=== PATIENT | male | born 1965 | race Caucasian/White ===

== ENCOUNTER 2016-08-25 08:06 | Observation (INO) | payer OTHER ==
--- NOTE | 2016-08-25 08:44 | EDPHY ---
H & P Time Seen by Provider: 08/25/16 08:15 HPI/ROS: This is a 50-year-old male patient presented to the emergency department reports having a vibrator stuck in his rectum since 2199. States him and his girlfriend were trying something new she placed a vibrator in his rectum and was unable to remove it. Pt thought it would come out on its own but hasn't. C/ o rectal discomfort but not really having any pain. Denies any abd pain or discomfort. No other c/o REVIEW OF SYSTEMS: Constitutional: No fever no fatigue Cardiac: No chest pain Gastrointestinal: No abd pain no n/v Genitourinary: No penile pain, positive for rectal discomfort Musculoskeletal: no back pain Skin: no rash Neurological: no VALLADARES or dizziness Past Medical/Surgical History: PMI: denies Smoking Status: Current every day smoker Physical Exam: CONSTITUTIONAL: patient appeared well nourished, non-ill appearing and normally developed. No acute distress. Vital signs as documented. HEENT: NCAT NECK: FROM without pain RESP: Non-labored resp effort GI: Abd soft NTTP, no mass : No object visually seen at the rectum, positive tenderness on rectal exam no blood NEURO: AAOx3 EXTREMITIES: FROM without pain or difficulty SKIN: No rash or lesions PSYCH: Normal affect, restless no distress Constitutional: Initial Vital Signs Temperature (C) 36.8 C 08/25/16 08:07 Heart Rate 86 08/25/16 08:07 Respiratory Rate 18 08/25/16 08:07 Blood Pressure 135/86 H 08/25/16 08:07 O2 Sat (%) 97 08/25/16 08:07 O2 Delivery Mode Room Air Allergies/Adverse Reactions: No Known Allergies Allergy (Unverified 08/25/16 08:12) Home Medications: Medication Instructions Recorded NK [No Known Home Meds] 08/25/16 Medical Decision Making - Diagnostics Imaging: Single view pelvis at 0855 hours History: Foreign body. findings: 13 cm in length cylindrical battery operated device noted in the distal rectosigmoid colon left side of the pelvis overlying the left sacrum obliquely. No pelvic bone fractures. Impression: Vibrator foreign body in the distal rectosigmoid colon. Dictated By: Edgar Valdes ED Course/Re-evaluation: Discussed plan of care: X-ray pelvis, CBC, CMP, coags 0930: Consult with Dr. Dougherty surgical consult, wanted me to call GI for evaluation 0940: Consult with Dr. Lowe GI, he will be down to evaluate patient 1030: To GI lab 1215: Spoke with Dr. Lowe, was able to remove FB object had extensive bleeding clips and epinephrine used bleeding controlled. Recommend pt admit for 24hour obs. 1225: Consult Dr. Dougherty patient admitted through hospitalist for admit for 24 out Differential Diagnosis: Differential diagnosis considered but not limited to perfect bowel, small bowel obstruction external rectal tears - Data Points Laboratory Results: Laboratory Results 08/25/16 09:13 08/25/16 09:13 08/25/16 08/25/16 08/25/16 09:13 09:13 09:13 WBC 12.38 10^3/uL H 10^3/uL (3.80-9.50) RBC 5.52 10^6/uL 10^6/uL (4.40-6.38) Hgb 17.9 g/dL H g/dL (13.7-17.5) Hct 49.4 % % (40.0-51.0) MCV 89.5 fL fL (81.5-99.8) MCH 32.4 pg pg (27.9-34.1) MCHC 36.2 g/dL g/dL (32.4-36.7) RDW 13.3 % % (11.5-15.2) Plt Count 169 10^3/uL 10^3/uL (150-400) MPV 9.0 fL fL (8.7-11.7) Neut % (Auto) 63.7 % % (39.3-74.2) Lymph % (Auto) 30.4 % % (15.0-45.0) Citrus % (Auto) 4.2 % L % (4.5-13.0) Eos % (Auto) 0.5 % L % (0.6-7.6) Baso % (Auto) 0.6 % % (0.3-1.7) Nucleat RBC Rel Count 0.0 % % (0.0-0.2) Absolute Neuts (auto) 7.89 10^3/uL H 10^3/uL (1.70-6.50) Absolute Lymphs (auto) 3.76 10^3/uL H 10^3/uL (1.00-3.00) Absolute Monos (auto) 0.52 10^3/uL 10^3/uL (0.30-0.80) Absolute Eos (auto) 0.06 10^3/uL 10^3/uL (0.03-0.40) Absolute Basos (auto) 0.07 10^3/uL 10^3/uL (0.02-0.10) Absolute Nucleated RBC 0.00 10^3/uL 10^3/uL (0-0.01) Immature Gran % 0.6 % % (0.0-1.1) Immature Gran # 0.08 10^3/uL 10^3/uL (0.00-0.10) PT 13.6 SEC SEC (12.0-15.0) INR 1.05 (0.83-1.16) APTT 27.4 SEC SEC (23.0-38.0) Sodium 141 mEq/L mEq/L (134-144) Potassium 3.3 mEq/L L mEq/L (3.5-5.2) Chloride 108 mEq/L mEq/L (97-110) Carbon Dioxide 23 mEq/l mEq/l (22-31) Anion Gap 10 mEq/L mEq/L (8-16) BUN 9 mg/dL mg/dL (7-23) Creatinine 0.6 mg/dL L mg/dL (0.7-1.3) Estimated GFR > 60 Glucose 82 mg/dL mg/dL (70-100) Calcium 9.2 mg/dL mg/dL (8.5-10.4) Departure - Departure Disposition: To OP Cath/Surgery Condition: Good
[2016-08-25 09:22] LABS: % IMMATURE GRANULYOCYTES 0.6 % (0.0-1.1); ABSOLUTE IMMATURE GRANULOCYTES 0.08 10^3/uL (0.00-0.10); ADD DIFF? NO; ADD MORPH? NO; ADD SCAN? NO; ATYPICAL LYMPHOCYTE FLAG 10 (0-99); FRAGMENT RBC FLAG 0 (0-99); HEMATOCRIT 49.4 % (40.0-51.0); HEMOGLOBIN 17.9 g/dL (13.7-17.5); LEFT SHIFT FLG 0 (0-99); LIPEMIA HEMOLYSIS FLAG 90 (0-99); MEAN CELL HEMOGLOBIN 32.4 pg (27.9-34.1); MEAN CELL HEMOGLOBIN CONCENTR. 36.2 g/dL (32.4-36.7); MEAN CELL VOLUME 89.5 fL (81.5-99.8); PLATELET CLUMPS FLAG 0 (0-99); PLATELET COUNT 169 10^3/uL (150-400); RED BLOOD CELL COUNT 5.52 10^6/uL (4.40-6.38); RED CELL DISTRIBUTION WIDTH 13.3 % (11.5-15.2)
--- NOTE | 2016-08-25 09:24 | CPEKG ---
Heart Rate: 72 RR Interval: 833 P-R Interval: 176 QRSD Interval: 102 QT Interval: 420 QTC Interval: 460 P [place]: 81 QRS [place]: -14 T Wave [place]: 71 EKG Severity - ABNORMAL ECG - EKG Impression: SINUS RHYTHM EKG Impression: BIATRIAL ABNORMALITIES EKG Impression: CONSIDER RIGHT VENTRICULAR HYPERTROPHY Electronically Signed By: Grayson Wick 28-Aug-2016 08:59:30
[2016-08-25 09:32] LABS: INR 1.05 (0.83-1.16); PROTIME(PATIENT) 13.6 SEC (12.0-15.0)
[2016-08-25 09:33] LABS: APTT 27.4 SEC (23.0-38.0)
[2016-08-25 09:49] LABS: CALCIUM 9.2 mg/dL (8.5-10.4); CARBON DIOXIDE 23 mEq/l (22-31); CHLORIDE 108 mEq/L (97-110); CREATININE 0.6 mg/dL (0.7-1.3); GLOMERULAR FILTRATION RATE > 60; GLUCOSE 82 mg/dL (70-100); SODIUM 141 mEq/L (134-144)
[2016-08-25 10:18] LABS: ANION GAP 10 mEq/L (8-16); POTASSIUM 3.3 mEq/L (3.5-5.2)
[2016-08-25] MEDS ORDERED: fentaNYL 100 MCG/2 ML INJ ONE ×2 (11:09→12:24)
[2016-08-25] MEDS ORDERED: LIDOCAINE 2% 5 ML SDV ONE (11:10)
[2016-08-25] MEDS ORDERED: PROPOFOL/EMULSION 500 MG/50 ML BOTTLE IV ONE ×2 (11:10→11:51)
--- NOTE | 2016-08-25 11:55 | GCON ---
[f rep st] CONSULTATION CONSULT NOTE DATE OF CONSULTATION: 08/25/2016 ASSESSMENT: The patient is a 50-year-old gentleman who is otherwise healthy, who is presenting with a foreign body in his rectum. He has had a vibrator lodged in the rectosigmoid location since last evening. He is having 8/10 rectal and pelvic pain, as well as rectal bleeding. RECOMMENDATIONS: Plan for emergent flexible sigmoidoscopy to remove the foreign body lodged in his rectum. CHIEF COMPLAINT: I was asked to see this patient in consultation by Dr. Nestor Adams for a chief complaint of foreign body in the rectum, abdominal pain/ rectal pain and rectal bleeding. HISTORY OF PRESENT ILLNESS: The patient is a 50-year-old gentleman who presents to the emergency room today after getting a vibrator stuck in his rectum since last evening. He currently has 8/10 rectal and pelvic pain. He is having rectal bleeding as well. He has not eaten since last evening. The pain is constant and severe. Nothing makes the pain better or worse. REVIEW OF SYSTEMS: Constitutional: Negative. HEENT negative. Respiratory: Negative. Cardiovascular: Negative. Gastrointestinal: Rectal pain and abdominal pain, as well as rectal bleeding. Genitourinary: Negative. Reproductive/endocrine: Negative. Musculoskeletal: Negative. Hematologic/ lymphatic: Negative. Immunologic, allergic and rheumatologic: Negative. Skin : Negative. Neurologic: Negative. Mental health. Negative. PAST MEDICAL HISTORY: The patient has no significant past medical history. SURGICAL HISTORY: Negative. FAMILY HISTORY: No family history noted related to the chief complaint. SOCIAL HISTORY: He denies alcohol use. He smokes 1 pack of cigarettes per day. ALLERGIES: He has no known drug allergies. MEDICATIONS: Outpatient medications are none. Inpatient medications are none. PHYSICAL EXAMINATION: Vital signs: Temperature is 36.8, heart rate is 86, respirations 18, blood pressure is 135/86, oxygen saturation is 97% on room air. General: He is awake, alert, oriented, and interactive. He is in no apparent distress. HEENT: Pupils are equal and reactive to light. Oral mucosa is moist. Chest: Breath sounds are clear to auscultation bilaterally, without wheezing, rhonchi, or rales. Cardiovascular: Regular rate and rhythm. No murmurs, rubs, or gallops. Normal S1, S2. Abdomen: Soft, nontender, nondistended. Musculoskeletal: There is full range of motion. Skin: [place], warm and well perfused. No rashes. Neurological: Grossly nonfocal. He has coordinating gait. Lymph nodes: There are no palpable lymph nodes. Psych: He is oriented x3. No mood disorder. Normal affect. LABS: White blood cell count is 12.38, hemoglobin 17.9, hematocrit 49.3, platelets are 169, MCV 89. IMAGING: Pelvic x-ray shows a 13cm foreign body in the rectosigmoid junction. /[id number]/MODL MTDD
[2016-08-25] MEDS ORDERED: EPINEPHrine 1 MG/10 ML SYR IVP ONE (12:02)
[2016-08-25] MEDS ORDERED: KETOROLAC 30 MG/1 ML SDV IVP PRN (12:29)
--- NOTE | 2016-08-25 13:10 | GPN ---
[f rep st] PROCEDURE NOTE PREPROCEDURE DIAGNOSIS: Foreign body in the rectum. POSTPROCEDURE DIAGNOSIS: Foreign body in the rectum and rectal bleeding. MEDICATIONS: Monitored anesthesia care. PROCEDURE: Flexible sigmoidoscopy with foreign body and flexible sigmoidoscopy with bleeding cessat ion. INDICATIONS: The patient is a 50-year-old gentleman with a foreign body lodged in his rectum since last evening. He has 8/10 rectal pain and rectal bleeding. The risks and benefits of the procedure were discussed with the patient and consent obtained. The risks include, but not limited to, bleed ing, perforation, risks of sedation. The patient is ASA class 2. DESCRIPTION OF PROCEDURE: The upper endoscope was inserted into the rectum. There was a significan t amount of red blood and blood clots in the rectum. The end of the vibrator was visualized in the rectosigmoid junction. Next, the snare was opened and used to grab the vibrator, which was then dis lodged from the patient's rectum and removed from the body. The scope was reinserted. There were 3 linear mucosal tears, one of which was actively bleeding and was adjacent to a hemorrhoid. These s ites were treated with a total of 4 hemoclips, and the active bleeding site was injected with 2 mL o f 1:10,000 epinephrine. There was no active bleeding at the end of the case. IMPRESSION: 1. Foreign body removed from the rectum. 2. Active rectal bleeding, status post endoscopic management with clips and epinephrine. RECOMMENDATIONS: I recommend admission to the hospital for observation given the significant amount of rectal bleeding, requiring endoscopic therapy for bleeding cessation. He should be on a clear l iquid diet today; and if no further bleeding is observed by tomorrow, he can be discharged to home. Thank you for allowing me to participate in the care of this patient. Please do not hesitate to haider eric with questions. /[id number]/MODL
--- NOTE | 2016-08-25 16:39 | PDEACUHP ---
History and Physical - History of Present Illness error History Information - Allergies/Home Medication List Allergies/Adverse Reactions: No Known Allergies Allergy (Verified 08/25/16 14:03) Home Medications: NK [No Known Home Meds] 08/25/16 [Last Taken Unknown] - Social History Smoking Status: Current every day smoker Physical Exam Temp Pulse Resp BP Pulse Ox 36.9 C 65 12 119/75 93 08/25/16 15:57 08/25/16 15:57 08/25/16 15:57 08/25/16 15:57 08/25/16 15:57 O2 (L/minute) 1 Lab Data & Imaging Review 08/26/16 05:04 08/25/16 09:13 WBC 12.38 10^3/uL (3.80-9.50) H 08/25/16 09:13 RBC 5.52 10^6/uL (4.40-6.38) 08/25/16 09:13 Hgb 17.9 g/dL (13.7-17.5) H 08/25/16 09:13 Hct 49.4 % (40.0-51.0) 08/25/16 09:13 MCV 89.5 fL (81.5-99.8) 08/25/16 09:13 MCH 32.4 pg (27.9-34.1) 08/25/16 09:13 MCHC 36.2 g/dL (32.4-36.7) 08/25/16 09:13 RDW 13.3 % (11.5-15.2) 08/25/16 09:13 Plt Count 169 10^3/uL (150-400) 08/25/16 09:13 MPV 9.0 fL (8.7-11.7) 08/25/16 09:13 Neut % (Auto) 63.7 % (39.3-74.2) 08/25/16 09:13 Lymph % (Auto) 30.4 % (15.0-45.0) 08/25/16 09:13 Saline % (Auto) 4.2 % (4.5-13.0) L 08/25/16 09:13 Eos % (Auto) 0.5 % (0.6-7.6) L 08/25/16 09:13 Baso % (Auto) 0.6 % (0.3-1.7) 08/25/16 09:13 Nucleat RBC Rel Count 0.0 % (0.0-0.2) 08/25/16 09:13 Absolute Neuts (auto) 7.89 10^3/uL (1.70-6.50) H 08/25/16 09:13 Absolute Lymphs (auto) 3.76 10^3/uL (1.00-3.00) H 08/25/16 09:13 Absolute Monos (auto) 0.52 10^3/uL (0.30-0.80) 08/25/16 09:13 Absolute Eos (auto) 0.06 10^3/uL (0.03-0.40) 08/25/16 09:13 Absolute Basos (auto) 0.07 10^3/uL (0.02-0.10) 08/25/16 09:13 Absolute Nucleated RBC 0.00 10^3/uL (0-0.01) 08/25/16 09:13 Immature Gran % 0.6 % (0.0-1.1) 08/25/16 09:13 Immature Gran # 0.08 10^3/uL (0.00-0.10) 08/25/16 09:13 PT 13.6 SEC (12.0-15.0) 08/25/16 09:13 INR 1.05 (0.83-1.16) 08/25/16 09:13 APTT 27.4 SEC (23.0-38.0) 08/25/16 09:13 Sodium 141 mEq/L (134-144) 08/25/16 09:13 Potassium 3.3 mEq/L (3.5-5.2) L 08/25/16 09:13 Chloride 108 mEq/L (97-110) 08/25/16 09:13 Carbon Dioxide 23 mEq/l (22-31) 08/25/16 09:13 Anion Gap 10 mEq/L (8-16) 08/25/16 09:13 BUN 9 mg/dL (7-23) 08/25/16 09:13 Creatinine 0.6 mg/dL (0.7-1.3) L 08/25/16 09:13 Estimated GFR > 60 08/25/16 09:13 Glucose 82 mg/dL (70-100) 08/25/16 09:13 Calcium 9.2 mg/dL (8.5-10.4) 08/25/16 09:13
--- NOTE | 2016-08-25 16:57 | PDGENHP ---
History and Physical History and Physical: Chief complaint: Rectal pain and bleeding History of present illness: The patient is a 50-year-old male who was admitted today for rectal foreign body. Patient says he was playing around with his girlfriend last night around 10:00 p.m. when she inserted a large vibrator into his anus. It was pushed in too far and it disappeared. The patient tried to remove it himself, but was unsuccessful. He was unable to sleep last night from the pain. Early this morning he came to the ED to have it removed. He was taken to the OR by Gastroenterology and underwent removal of the foreign body under general anesthesia. Following the procedure, the patient was feeling much better. Because he experienced perioperative rectal bleeding, he is being admitted overnight for observation. Currently the patient denies any lightheadedness, dizziness, weakness. He has had a bowel movement containing a moderate amount of blood. Past medical history: latent TB, s/p Tx Past surgical history: Oral surgery. Medications: None. Allergies: No known allergies. Social history: Patient smokes 1 pack of cigarettes daily. He drinks about 4- 7 beers weekly. He smokes marijuana regularly. He denies any other drug use. He lives with a roommate. He has a girlfriend. 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 Family history: No significant family medical history. Review of systems: 10 point review of systems was conducted and is negative except per HPI Physical exam: General: The patient is a thin, middle-aged male who is alert and in no acute distress. HEENT: normocephalic, extraocular movements intact, conjunctivae clear, no lesions on face. Nares and oral mucosa pink and moist. Neck: trachea midline, no visible masses, no external lesions. CV: +S1/S2, RRR, no MRG. Resp: unlabored, CTAB no RRW. Abd: soft and nondistended. Bowel sounds are present. Mild tenderness to palpation in left lower quadrant, right lower quadrant. No rebound tenderness or guarding. Musculoskeletal: Normal muscle tone and bulk. 5/5 strength bilateral upper and lower extremities. Neuro: cranial nerves II XII grossly intact. Intact gross motor and sensory function. Psych: appropriate mood/affect. Skin: no pallor. Rectal: Deferred. Vitals: Reviewed, within normal limits. Labs: Personally reviewed and interpreted. Other Data: Personally interpreted and reviewed. Pelvis x-ray: 13 cm length excellent recall battery operated device noted in the distal rectosigmoid colon left side of the pelvis overlying left sacrum obliquely. No pelvic bone fractures. EKG: Normal sinus rhythm with a rate of 72. Biatrial enlargement and incomplete right bundle branch block. No acute ischemic changes. Impression and plan: 1) Rectal foreign body, s/p removal 2) Rectal bleeding, 2/2 trauma 3) Abdominal/rectal pain 4) Nausea, mild 5) Tobacco dependence disorder 6) Marijuana use 7) H/o latent TB -Monitor overnight in med surg -Recheck CBC in AM. May need to recheck sooner if pt develops concerning symptoms. -If patient does well in AM, has no symptoms, he may go home tomorrow. -VTE ppx - not needed, ambulatory. -Code status - full.
[2016-08-25] MEDS ORDERED: ONDANSETRON DISINTEGRATING 4 MG TAB PO PRN (16:58)
[2016-08-25] MEDS ORDERED: ACETAMINOPHEN 325 MG TAB PO PRN (16:58)
[2016-08-25] MEDS ORDERED: NICOTINE 14 MG/24 HR PATCH TD PRN (17:00)
[2016-08-25] MEDS ORDERED: HYDROCODONE/APAP 10/325 TAB PO PRN (17:02)
[2016-08-25] MEDS ORDERED: NICOTINE 21 MG/24 HR PATCH TD PRN (17:23)
[2016-08-25] MEDS: HYDROCODONE/APAP 5/325 TAB PO PRN ×2 (17:25→21:39)
[2016-08-26 05:54] LABS: % IMMATURE GRANULYOCYTES 0.6 % (0.0-1.1); ABSOLUTE IMMATURE GRANULOCYTES 0.06 10^3/uL (0.00-0.10); ADD DIFF? NO; ADD MORPH? NO; ADD SCAN? NO; ATYPICAL LYMPHOCYTE FLAG 10 (0-99); FRAGMENT RBC FLAG 0 (0-99); HEMATOCRIT 45.4 % (40.0-51.0); LEFT SHIFT FLG 0 (0-99); LIPEMIA HEMOLYSIS FLAG 90 (0-99); MEAN CELL HEMOGLOBIN 32.4 pg (27.9-34.1); MEAN CELL HEMOGLOBIN CONCENTR. 35.2 g/dL (32.4-36.7); MEAN CELL VOLUME 91.9 fL (81.5-99.8); MEAN PLATELET VOLUME 9.5 fL (8.7-11.7); PLATELET CLUMPS FLAG 0 (0-99); PLATELET COUNT 162 10^3/uL (150-400); RED BLOOD CELL COUNT 4.94 10^6/uL (4.40-6.38); RED CELL DISTRIBUTION WIDTH 13.7 % (11.5-15.2)
[2016-08-26 08:07] VITALS: RESP 14; O2SAT 92
[2016-08-26] MEDS ORDERED: DOCUSATE SODIUM 100 MG CAP PO SCH (09:00)
--- NOTE | 2016-08-26 10:45 | SOAPPROG ---
SOAP Progress Note Assessment/Plan: Assessment: 50 yoM with rectal foreign body s/p removal and rectal bleeding from linear ulcerations/ mucosal trauma s/p placement of 4 hemoclips and epinephrine injection to stop bleeding. Feeling much better today. No pain. No bleeding. Plan: - Okay for discharge from GI standpoint. - Recommend avoidance of constipation to prevent recurrent rectal bleeding while healing. Advised addition of Benefiber 1-2 scoops daily to diet x 2 weeks. - Thank you. 08/26/16 10:43 08/26/16 10:48 Subjective: Feeling better. No rectal pain. Denies bleeding. Tolerating a diet. Objective: Vital Signs Temp Pulse Resp BP Pulse Ox 36.9 C 71 14 120/70 92 08/26/16 08:00 08/26/16 08:00 08/26/16 08:00 08/26/16 08:00 08/26/16 08:00 Laboratory Results 08/26/16 05:04 08/25/16 08/26/16 08/27/16 05:59 05:59 05:59 Intake Total 1500 Output Total 25 Balance 1475 PT 13.6 SEC (12.0-15.0) 08/25/16 09:13 INR 1.05 (0.83-1.16) 08/25/16 09:13 Physical Exam - Physical Exam General Appearance: WD/WN, no apparent distress EENT: PERRL/EOMI Neck: non-tender, full range of motion Respiratory: chest non-tender, lungs clear, normal breath sounds Cardiac/Chest: normal peripheral pulses, regular rate, rhythm Abdomen: normal bowel sounds, non-tender, soft Skin: normal color, warm/dry Lymphatic: no adenopathy ICD10 Worksheet Patient Problems: Problems Problem Status Onset Rectal bleeding Acute Rectal bleeding Acute - ICD10 Problem Qualifiers (1) Rectal bleeding
[2016-08-26 11:29] VITALS: BP 105/65; PULSE 72; TEMP 99.1
== END 2016-08-26 13:23 | disposition home or self-care (01) ==
LOC: F3E 13:26
PROVIDERS: ADMIT Internal Medicine; ATTEND Internal Medicine
PROC: 0DCP8ZZ Extirpation of Matter from Rectum, Via Natural or Artificial Opening Endoscopic (ICD-10-PCS; principal; 2016-08-25 11:06)
PROC: 0W3P8ZZ Control Bleeding in Gastrointestinal Tract, Via Natural or Artificial Opening Endoscopic (ICD-10-PCS; principal; 2016-08-25 11:06)
DX: T18.5XXA Foreign body in anus and rectum, initial encounter (principal); F17.210 Nicotine dependence, cigarettes, uncomplicated
CPT/HCPCS: 45915; 72170; 93005; G0378; J2704; J3010